=== PATIENT | male | born 1975 ===

== ENCOUNTER 2017-08-13 13:55 | Emergency (ER) | payer BC, OTHER ==
[2017-08-13 14:47] VITALS: BMI 36.9
[2017-08-13 15:53] LABS: URINE BILIRUBIN NEGATIVE (NEGATIVE); URINE BLOOD NEGATIVE (NEGATIVE); URINE GLUCOSE (UA) NEGATIVE (NEGATIVE); URINE LEUKOCYTE ESTERASE NEGATIVE Leu/uL (NEGATIVE); URINE NITRATE NEGATIVE (NEGATIVE); URINE PROTEIN NEGATIVE mg/dL (<30 mg/dL); URINE UROBILINOGEN 0.2 E.U./dL (<1 E.U./dL)
[2017-08-13 15:59] LABS: ALB/GLOB RATIO 1.3 (1.1-1.8); ALBUMIN 4.3 g/dL (3.0-4.8); ALT/SGPT 52 U/L (7-56); AST/SGOT 35 U/L (17-59); BLOOD UREA NITROGEN 11 mg/dL (7-21); CALCIUM 9.6 mg/dL (8.4-10.5); GFR AFRICAN-AMERICAN > 60; GFR NON-AFRICAN AMERICAN > 60; LIPASE 177 U/L (23-300)
[2017-08-13 16:04] LABS: MEAN CELL VOLUME 87.9 fl (80.0-105.0); MEAN CORPUSCULAR HEMOGLOBIN 30.7 pg (25.0-35.0); MEAN CORPUSCULAR HGB CONC 34.9 g/dl (31.0-37.0); RBC 5.22 10^6/uL (3.5-6.1); RED CELL DISTRIBUTION WIDTH 14.7 % (11.5-14.5); WHITE BLOOD COUNT 6.7 10^3/ul (4.5-11.0)
[2017-08-13 16:05] LABS: BASO # 0.02 K/mm3 (0.0-2.0); BASO % 0.3 % (0.0-3.0); EOS # 0.1 (0.0-0.7); EOS % 1.6 % (1.5-5.0); GRAN # 4.46 (1.4-6.5); GRAN % 66.9 % (50.0-68.0); LYMPH # 1.6 (1.2-3.4); MONO # 0.5 (0.1-0.6); MONO % 7.2 % (1.0-6.0)
[2017-08-13] MEDS ORDERED: Sodium Chloride 0.9% 1,000 ML IV STA (16:23)
--- NOTE | 2017-08-13 16:32 | US ---
HISTORY: ruq/back pain COMPARISON: None. TECHNIQUE: Sonographic evaluation of the abdomen. FINDINGS: LIVER: Measures 13.66 x 16.24 cm in length. Increased echogenicity of the liver parenchyma. No mass. No intrahepatic bile duct dilatation. GALLBLADDER: Unremarkable. No gallstones. COMMON BILE DUCT: Measures 3 mm in transverse dimension. No stones. No dilatation. PANCREAS: Unremarkable as visualized. No mass. No ductal dilatation. RIGHT KIDNEY: Measures 11.33 x 5.41 x 6.24cm. Normal echogenicity. No calculus, mass, or hydronephrosis. LEFT KIDNEY: Measures 12.20 x 5.04 x 5.37cm. Normal echogenicity. No calculus, mass, or hydronephrosis. SPLEEN: 14.18 x 6.34 AORTA: No aneurysmal dilatation. IVC: Unremarkable. OTHER FINDINGS: None . IMPRESSION: Fatty infiltration of the liver. No evidence of gallstones
[2017-08-13] MEDS ORDERED: Iohexol 350 MG/100 ML VIAL ONE (16:33)
[2017-08-13 16:35] LABS: URINE APPEARANCE CLEAR (CLEAR); URINE COLOR LIGHT YELLOW (YELLOW)
--- NOTE | 2017-08-13 16:41 | ED PDOC ---
Arrival/HPI - General Chief Complaint: Abdominal Pain Time Seen by Provider: 08/13/17 15:13 Historian: Patient - History of Present Illness Narrative History of Present Illness (Text): 08/13/17 16:38 41-year-old male presents today with a one-week history of right sided back pain. Patient states he has a history of kidney stones but states that the pain is different. He describes an achy pain along the right side of the upper back. Patient states pain is worse after eating. He denies chest pain or shortness of breath. Denies fevers or chills. Patient states the pain is been gradually worsening daily over the past week. He denies any urinary symptoms. Denies bladder or bowel incontinence. Denies cough. Denies any other complaints. Time/Duration: 1 week Symptom Onset: Gradual Symptom Course: Worsening Quality: Aching Severity Level: 7 Past Medical History - Provider Review Nursing Documentation Reviewed: Yes - Travel History Have you recently traveled outside [place] w/in the past 3 mons?: No - Tetanus Immunization Tetanus Immunization: Unknown - Cardiac Hx Cardiac Disorders: No - Pulmonary Hx Respiratory Disorders: No - Neurological Hx Neurological Disorder: No - HEENT Hx HEENT Disorder: No - Renal Hx Renal Disorder: Yes - Endocrine/Metabolic Hx Endocrine Disorders: No - Hematological/Oncological Hx Blood Disorders: No - Integumentary Hx Dermatological Disorder: No - Musculoskeletal/Rheumatological Hx Musculoskeletal Disorders: No - Gastrointestinal Hx Gastrointestinal Disorders: Yes Other/Comment: gallstones - Genitourinary/Gynecological Hx Genitourinary Disorders: No - Psychiatric Hx Psychophysiologic Disorder: No Hx Substance Use: No Family/Social History - Physician Review Nursing Documentation Reviewed: Yes Family/Social History: Unknown Family HX Smoking Status: Never Smoked Hx Alcohol Use: No Hx Substance Use: No Allergies/Home Meds Allergies/Adverse Reactions: Allergies No Known Allergies Allergy (Verified 08/13/17 14:47) Review of Systems - Review of Systems Constitutional: absent: Fatigue, Fevers Respiratory: absent: SOB, Cough Cardiovascular: absent: Chest Pain, Palpitations Gastrointestinal: Abdominal Pain, Diarrhea. absent: Constipation, Nausea, Vomiting Genitourinary Male: absent: Dysuria, Frequency, Hematuria Musculoskeletal: Back Pain. absent: Arthralgias, Neck Pain Skin: absent: Rash, Pruritis Neurological: absent: Headache, Dizziness Psychiatric: absent: Anxiety, Depression Physical Exam Vital Signs Reviewed: Yes Vital Signs Temp Pulse Resp BP Pulse Ox 08/13/17 17:53 78 18 119/63 100 08/13/17 17:45 98.3 F 79 16 106/59 L 100 08/13/17 14:43 98.8 F 102 H 18 127/86 96 Temperature: Afebrile Blood Pressure: Normal Pulse: Tachycardic Respiratory Rate: Normal Appearance: Positive for: Well-Appearing, Non-Toxic, Comfortable Pain Distress: None Mental Status: Positive for: Alert and Oriented X 3 - Systems Exam Head: Present: Atraumatic Mouth: Present: Moist Mucous Membranes Neck: Present: Normal Range of Motion Respiratory/Chest: Present: Clear to Auscultation, Good Air Exchange. No: Respiratory Distress, Accessory Muscle Use Cardiovascular: Present: Regular Rate and Rhythm, Normal S1, S2. No: Murmurs Abdomen: Present: Tenderness (minimal ruq tenderness), Normal Bowel Sounds. No : Distention, Peritoneal Signs, Rebound, Guarding Back: Present: Normal Inspection. No: CVA Tenderness, Midline Tenderness, Paraspinal Tenderness Upper Extremity: Present: Normal ROM Lower Extremity: Present: Normal ROM. No: Edema Neurological: Present: GCS=15 Skin: Present: Warm, Dry, Normal Color. No: Rashes Psychiatric: Present: Alert, Oriented x 3 Medical Decision Making ED Course and Treatment: 08/13/17 16:41 Patient is nontoxic well appearing with stable vital signs presenting with right sided back and abdominal pain worsening x 1 week. CBC wnl CMP wnl Lipase wnl Urinalysis wnl; no blood Ultrasound: FINDINGS: LIVER: Measures 13.66 x 16.24 cm in length. Increased echogenicity of the liver parenchyma. No mass. No intrahepatic bile duct dilatation. GALLBLADDER: Unremarkable. No gallstones. COMMON BILE DUCT: Measures 3 mm in transverse dimension. No stones. No dilatation. PANCREAS: Unremarkable as visualized. No mass. No ductal dilatation. RIGHT KIDNEY: Measures 11.33 x 5.41 x 6.24cm. Normal echogenicity. No calculus, mass, or hydronephrosis. LEFT KIDNEY: Measures 12.20 x 5.04 x 5.37cm. Normal echogenicity. No calculus, mass, or hydronephrosis. SPLEEN: 14.18 x 6.34 AORTA: No aneurysmal dilatation. IVC: Unremarkable. OTHER FINDINGS: None . IMPRESSION: Fatty infiltration of the liver. No evidence of gallstones cxr; wnl CAT scan: FINDINGS: LOWER THORAX: Unremarkable. LIVER: Unremarkable. No gross lesion or ductal dilatation. GALLBLADDER AND BILE DUCTS: Unremarkable. PANCREAS: Unremarkable. No gross lesion or ductal dilatation. SPLEEN: Unremarkable. ADRENALS: Unremarkable. No mass. KIDNEYS AND URETERS: Unremarkable. No hydronephrosis. No solid mass. VASCULATURE: Unremarkable. No aortic aneurysm. BOWEL: Unremarkable. No obstruction. No gross mural thickening. APPENDIX: Normal appendix. PERITONEUM: Unremarkable. No free fluid. No free air. LYMPH NODES: Unremarkable. No enlarged lymph nodes. BLADDER: Unremarkable. REPRODUCTIVE: Unremarkable. BONES: No acute fracture. OTHER FINDINGS: None. IMPRESSION: No acute findings Patient reassessment: Patient feeling better after medications. Vital signs are stable. We will discharge the patient home to follow-up with the primary care physician and GI specialist. Discussed all results with patient in depth Stressed the importance of follow-up with a primary care physician and GI specialist. Advised immediate return if symptoms worsen persist or if new concerning symptoms develop Patient verbalizes understanding of discharge instructions and need for immediate followup. all aspects of this case were discussed the attending of record. Impression: Abdominal pain, back pain Motrin every 6 hours as needed for pain Pepcid one tablet daily Follow up with primary care physician within the next 2 days Follow-up with a GI specialist within the next 2 days Return immediately if symptoms worsen persist or if new symptoms develop: High fevers, increasing pain, vomiting, diarrhea or any other concerning symptoms develop - Lab Interpretations Lab Results: 08/13/17 14:28 08/13/17 14:28 Lab Results 08/13/17 14:28: WBC 6.7, RBC 5.22, Hgb 16.0, Hct 45.9, MCV 87.9, MCH 30.7, MCHC 34.9, RDW 14.7 H, Plt Count 167, MPV 9.0, Gran % 66.9, Lymph % (Auto) 24.0, [place] % (Auto) 7.2 H, Eos % (Auto) 1.6, Baso % (Auto) 0.3, Gran # 4.46, Lymph # 1.6, [place] # 0.5, Eos # 0.1, Baso # 0.02 08/13/17 14:28: Sodium 138, Potassium 4.2, Chloride 105, Carbon Dioxide 23, Anion Gap 15, BUN 11, Creatinine 1.0, Est GFR ( Amer) > 60, Est GFR (Non- Af Amer) > 60, Random Glucose 103, Calcium 9.6, Total Bilirubin 0.8, AST 35, ALT 52, Alkaline Phosphatase 67, Total Protein 7.6, Albumin 4.3, Globulin 3.2, Albumin/Globulin Ratio 1.3, Lipase 177 08/13/17 14:28: Urine Color Light yellow, Urine Appearance Clear, Urine pH 6.0, Ur Specific [place] 1.020, Urine Protein Negative, Urine Glucose (UA) Negative, Urine Ketones Negative, Urine Blood Negative, Urine Nitrate Negative, Urine Bilirubin Negative, Urine Urobilinogen 0.2, Ur Leukocyte Esterase Negative - RAD Interpretation Radiology Orders: 08/13/17 15:47 ABDOMEN COMPLETE [US] Stat 08/13/17 16:22 ABD & PELVIS IV CONTRAST ONLY [CT] Stat 08/13/17 17:43 CHEST PORTABLE [RAD] Stat - Medication Orders Current Medication Orders: Discontinued Medications Sodium Chloride (Sodium Chloride 0.9%) 1,000 mls @ 999 mls/hr IV .Q1H1M STA Stop: 08/13/17 17:23 Last Admin: 08/13/17 17:06 Dose: 999 mls/hr Comments: admin late as pt was in CT eMAR Start Stop Document 08/13/17 17:06 SE (Rec: 08/13/17 17:06 SE [id number]) Intravenous Solution Start Date 08/13/17 Start Time 17:06 Ketorolac Tromethamine (Toradol) 30 mg IVP STAT STA Stop: 08/13/17 15:47 Last Admin: 08/13/17 15:50 Dose: 30 mg MAR Pain Assessment Document 08/13/17 15:50 SE (Rec: 08/13/17 15:50 SE [id number]) Pain Reassessment Is this a pain reassessment? No Sleep Is patient sleeping during reassessment? No Presence of Pain Presence of Pain Yes Pain Scale Used Pain Scale Used Numeric IVP Administration Document 08/13/17 15:50 SE (Rec: 08/13/17 15:50 SE [id number]) Charges for Administration # of IVP Administrations 1 Disposition/Present on Arrival - Present on Arrival Any Indicators Present on Arrival: No History of DVT/PE: No History of Uncontrolled Diabetes: No Urinary Catheter: No History of Decub. Ulcer: No History Surgical Site Infection Following: None - Disposition Have Diagnosis and Disposition been Completed?: Yes Diagnosis: Abdominal pain, Back pain Disposition: HOME/ ROUTINE Disposition Time: 18:28 Patient Plan: Discharge Condition: GOOD Discharge Instructions (ExitCare): Abdominal Pain (ED), Back Pain (ED) Additional Instructions: Motrin every 6 hours as needed for pain Pepcid one tablet daily Follow up with primary care physician within the next 2 days Follow-up with a GI specialist within the next 2 days Return immediately if symptoms worsen persist or if new symptoms develop: High fevers, increasing pain, vomiting, diarrhea or any other concerning symptoms develop Prescriptions: Famotidine [Pepcid] 20 mg PO DAILY #30 tab Ibuprofen [Motrin] 600 mg PO Q6H PRN #20 tab PRN Reason: pain/fever reduction Referrals: Jay Stewart DO [Staff Provider] - Follow up with primary Kamilah Trejo MD [Medical Doctor] - Follow up with primary Forms: [employer] ([place]), WORK NOTE
--- NOTE | 2017-08-13 17:26 | CT ---
PROCEDURE: CT Abdomen and Pelvis with contrast HISTORY: abd pain COMPARISON: None. TECHNIQUE: Contrast dose: 100 cc of Omni 350 Radiation dose: Total exam DLP = 1055 mGy-cm. This CT exam was performed using one or more of the following dose reduction techniques: Automated exposure control, adjustment of the mA and/or kV according to patient size, and/or use of iterative reconstruction technique. FINDINGS: LOWER THORAX: Unremarkable. LIVER: Unremarkable. No gross lesion or ductal dilatation. GALLBLADDER AND BILE DUCTS: Unremarkable. PANCREAS: Unremarkable. No gross lesion or ductal dilatation. SPLEEN: Unremarkable. ADRENALS: Unremarkable. No mass. KIDNEYS AND URETERS: Unremarkable. No hydronephrosis. No solid mass. VASCULATURE: Unremarkable. No aortic aneurysm. BOWEL: Unremarkable. No obstruction. No gross mural thickening. APPENDIX: Normal appendix. PERITONEUM: Unremarkable. No free fluid. No free air. LYMPH NODES: Unremarkable. No enlarged lymph nodes. BLADDER: Unremarkable. REPRODUCTIVE: Unremarkable. BONES: No acute fracture. OTHER FINDINGS: None. IMPRESSION: No acute findings
[2017-08-13 17:46] VITALS: TEMP 98.3; O2SAT 100
[2017-08-13 17:54] VITALS: BP 119/63; PULSE 78; RESP 18
--- NOTE | 2017-08-14 08:56 | RAD ---
HISTORY: right upper back/abd pain COMPARISON: No prior. FINDINGS: LUNGS: The lungs are well inflated and clear. PLEURA: No significant pleural effusion identified, no pneumothorax apparent. CARDIOVASCULAR: The heart is normal in size. There is asymmetric prominence of the right hilum. OSSEOUS STRUCTURES: No significant abnormalities. VISUALIZED UPPER ABDOMEN: Normal. OTHER FINDINGS: None. IMPRESSION: No active pulmonary disease. Asymmetric prominence of the right hilum could be vascular related to mild patient rotation to the right. Follow-up PA and lateral radiographs are recommended for definitive further evaluation.
== END 2017-08-13 18:50 | disposition home or self-care (01) ==
LOC: ED 13:55
DX: R10.9 Unspecified abdominal pain (principal); M54.9 Dorsalgia, unspecified
CPT/HCPCS: 71045; 74177; 76700; 80053; 81003; 83690; 85025; 96374; 99285; J1885; J7040; Q9967

== ENCOUNTER 2018-02-11 23:07 | Emergency (ER) | payer BC, OTHER ==
[2018-02-11 23:07] VITALS: BMI 36.9
== END 2018-02-11 23:43 | disposition left against medical advice (07) ==
LOC: ED 23:07
DX: Z02.89 Encounter for other administrative examinations (principal); N20.0 Calculus of kidney